=== PATIENT | female | born 1975 | race Caucasian/White ===

== ENCOUNTER 2020-05-04 13:59 | Outpatient (REF) | payer OTHER, SELFPAY ==
[2020-05-07 17:47] LABS: SARS-CoV-2 RNA Undetected (Undetected); SARS-CoV-2 Specimen Source Nasopharynx
== END 2020-05-04 14:19 ==
LOC: NCHCN 13:59
PROVIDERS: Visit Provider Nurse Practitioner Family
DX: Z11.59 Encounter for screening for other viral diseases (principal)
CPT/HCPCS: U0003

== ENCOUNTER 2020-06-04 16:18 | Outpatient (REF) | payer OTHER, SELFPAY ==
[2020-06-08 16:03] LABS: SARS-CoV-2 RNA Undetected (Undetected); SARS-CoV-2 Specimen Source Nasopharynx
== END 2020-06-04 16:38 ==
LOC: NCHCN 16:18
PROVIDERS: PCP Internal Medicine; Visit Provider Internal Medicine
DX: Z11.59 Encounter for screening for other viral diseases (principal)
CPT/HCPCS: U0003

== ENCOUNTER → 2020-08-27 16:13 | Outpatient (REF) | payer OTHER, SELFPAY ==
[2020-08-27 21:25] LABS: Abs Immature Grans 0.01 10^3/uL (0.0-0.06); Absolute Basophil Count 0.03 10^3/uL (0.0-0.2); Absolute Eosinophil Count 0.15 10^3/uL (0.0-0.7); Absolute Lymphocyte Count 1.73 10^3/uL (1.2-3.4); Absolute Monocyte Count 0.44 10^3/uL (0.1-0.8); Basophils % 0.7; Eosinophils % 3.3; HCT 39.2 % (36.0-46.0); HGB 12.8 g/dL (11.2-15.7); Immature Grans % 0.2; Lymphocytes % 37.9; MCH 31.9 pg (27.0-33.0); MCHC 32.7 % (32.0-36.0); MCV 97.8 fL (80-95); MPV 10.8 fL (8.0-11.0); Monocytes % 9.6; Neutrophils % 48.3; Nucleated RBC 0 %; Platelet Count 260 10^3/uL (130-400); RBC 4.01 10^6/uL (3.93-5.22); RDW 12.3 % (11.7-14.6); RDW-SD 44.9 fL; WBC 4.56 10^3/uL (4.4-10.8)
[2020-08-27 22:20] LABS: ALT 17 U/L (14-59); AST 14 U/L (15-37); Albumin 4.1 g/dL (3.4-5.0); Alkaline Phosphatase 38 U/L (46-116); Anion Gap 7.5 mmol/L (3-11); BUN 13 mg/dL (7-18); Bilirubin, Total 0.6 mg/dL (0.2-1.0); CO2 28.5 mmol/L (21.0-32.0); CREATININE 0.88 mg/dL (0.55-1.02); Calcium 8.9 mg/dL (8.5-10.1); Chloride 105 mmol/L (98-107); Glucose 94 mg/dL (74-106); Sodium 141 mmol/L (136-145); TSH 0.57 uIU/mL (0.36-3.74); Total Protein 7.1 g/dL (6.4-8.2)
[2020-08-27 22:21] LABS: C-Reactive Protein < 0.05 mg/dL (0.0-0.3)
[2020-08-27 22:22] LABS: ESR 6 mm/hr (0-20)
[2020-08-30 11:31] LABS: Lyme Ab w Rflx to Lyme Confirm Negative (Negative)
== END ==
LOC: NCHCN 16:13
PROVIDERS: PCP Internal Medicine; Visit Provider Registered Nurse
DX: R51.9 Headache, unspecified (principal); H53.9 Unspecified visual disturbance; R52 Pain, unspecified
CPT/HCPCS: 80053; 85652; 84443; 85025; 86140; 86618

== ENCOUNTER 2020-10-19 22:38 | Outpatient (REF) | payer OTHER, SELFPAY ==
[2020-10-19 22:02] LABS: Abs Immature Grans 0.01 10^3/uL (0.0-0.06); Absolute Basophil Count 0.04 10^3/uL (0.0-0.2); Absolute Eosinophil Count 0.16 10^3/uL (0.0-0.7); Absolute Lymphocyte Count 1.64 10^3/uL (1.2-3.4); Absolute Monocyte Count 0.44 10^3/uL (0.1-0.8); Absolute Neutrophil Count 2.67 10^3/uL (1.2-6.7); Basophils % 0.8; Eosinophils % 3.2; HCT 41.4 % (36.0-46.0); HGB 13.3 g/dL (11.2-15.7); Immature Grans % 0.2; Lymphocytes % 33.1; MCH 31.9 pg (27.0-33.0); MCHC 32.1 % (32.0-36.0); MCV 99.3 fL (80-95); MPV 10.9 fL (8.0-11.0); Monocytes % 8.9; Neutrophils % 53.8; Nucleated RBC 0 %; Platelet Count 271 10^3/uL (130-400); RBC 4.17 10^6/uL (3.93-5.22); RDW 12.1 % (11.7-14.6); RDW-SD 44.5 fL; WBC 4.96 10^3/uL (4.4-10.8)
[2020-10-19 22:55] LABS: Anion Gap 10.1 mmol/L (3-11); BUN 8 mg/dL (7-18); CO2 27.9 mmol/L (21.0-32.0); CREATININE 0.9 mg/dL (0.55-1.02); Calcium 9.2 mg/dL (8.5-10.1); Chloride 106 mmol/L (98-107); Glucose 99 mg/dL (74-106); Potassium 4.3 mmol/L (3.5-5.1); Sodium 144 mmol/L (136-145); TSH 0.69 uIU/mL (0.36-3.74)
[2020-10-20 17:15] LABS: Osmolality, Urine 84 mOsm/kg (150-1,150)
[2020-10-20 17:50] LABS: Osmolality Serum 289 mOsm/kg (275-295)
== END 2020-10-19 22:39 | disposition home or self-care (01) ==
LOC: NCHCN 22:38
PROVIDERS: PCP Internal Medicine; Visit Provider Nurse Practitioner Family
DX: R53.83 Other fatigue (principal); R63.1 Polydipsia; R35.8 Other polyuria
CPT/HCPCS: 80048; 83935; 83930; 84443; 85025